=== PATIENT | female | born 1970 | race Caucasian/White ===

== ENCOUNTER 2021-01-08 13:42 | Outpatient (CLI) | payer OTHER, SELFPAY | END 2021-01-08 13:43 | disposition home or self-care (01) | LOC: ANHAUDIO 13:44 | PROVIDERS: PCP Physician Assistant; Visit Provider Physician Assistant | DX: H91.90 Unspecified hearing loss, unspecified ear (principal) | CPT/HCPCS: 92552; 92556; 92567 ==